=== PATIENT | male | born 1970 | race Caucasian/White ===

== ENCOUNTER → 2018-12-30 | Outpatient (CLI) | payer BC, OTHER ==
[~2018-12-30] VITALS: Ht 185.4 cm; Wt 85.7 kg
[~2018-12-30] MED LIST: CRESTOR10 MG PO; TOPROL XL25 MG PO; XARELTO20 MG PO
[2018-12-30 07:41] VITALS: BP 120/80
--- NOTE | 2018-12-30 10:52 | TEE ---
[facility] [place] [address] TRANSESOPHAGEAL ECHOCARDIOGRAM Name: KELVIN FOLEY Room #: REG SUDHIR MckeonKathyRuthKathy#: [id number] ������������� Admission: 12/30/18 ������������� Attend Phys: Charlie Aly, Discharge: ��� ������������� ��� Date of : 68 Date of Service: 12/30/18 1052 �� Report #: [id number] �������� ��������������������������������������������[id number] THIS REPORT FOR: //name// APPROVED REPORT Study performed: 12/30/2018 09:06:47 EXAM: Comprehensive 2D, Doppler, and color-flow Echocardiogram Patient Location: Out-Patient Status: routine BSA: 2.10 HR: 84 bpm Rhythm: Atrial Fibrillation Other Information Study Quality: Good Indications Atrial Fibrillation Procedure After obtaining informed consent, patient underwent transesophageal echo in the [employer]. Type of Sedation : Conscious Sedation Sedation was administered by Suzanna Castellon RN. Sedation was achieved intravenously with: Versed (4) Fentanyl (100) Transesophageal probe was inserted and advanced into esophagus without difficulty by Charlie Aly MD. The COLETTE was performed without complications. Synchronized Cardioversion attempted: Unsuccessful Synchronized Cardioversion acheived with Joules after 4 attempt(s). Rhythm following Synchronized Cardioversion: Atrial fibrillation. Throughout the procedure, the blood pressure, pulse oximetry, cardiac rhythm, and rate were monitored. The patient tolerated the procedure without adverse effects. Recovery from conscious sedation was uneventful and vital signs were stable. Left Ventricle The left ventricle is normal size. There is normal LV segmental wall motion. There is normal left ventricular wall thickness. Left ventricular systolic function is normal. LVEF is 50%. [facility] [address] [place] [address] TRANSESOPHAGEAL ECHOCARDIOGRAM Name: KELVIN FOLEY Room #: REG SUDHIR Teja.#: [id number] ������������� Admission: 12/30/18 ������������� Attend Phys: Charlie Aly, Discharge: ��� ������������� ��� Date of : 68 Date of Service: 12/30/18 1052 �� Report #: [id number] �������� ��������������������������������������������[id number] Right Ventricle The right ventricle is normal size. The right ventricular systolic function is normal. Atria The left atrium size is normal. No thrombus is visualized in the left atrium or appendage. No shunting noted with contrast bubble injection. The right atrium size is normal. Aortic Valve The aortic valve is normal in structure. No aortic regurgitation is present. There is no aortic valvular stenosis. Mitral Valve The mitral valve is normal in structure. Mild mitral regurgitation. Tricuspid Valve The tricuspid valve is normal in structure. There is no tricuspid valve regurgitation noted. Pulmonic Valve The pulmonary valve is normal in structure. There is no pulmonic valvular regurgitation. Great Vessels The aortic root is normal in size. The ascending aorta is normal in size. IVC is normal in size and collapses >50% with inspiration. Pericardium There is no pericardial effusion. <Conclusion> Left ventricular systolic function is normal. LVEF is 50%. Atria are normal sized No thrombus is visualized in the left atrium or appendage. No shunting noted with contrast bubble injection. The aortic valve is normal in structure. No aortic regurgitation or stenosis The mitral valve is normal in structure. Mild mitral regurgitation Normal aorta. There is no pericardial effusion. [facility] [address] [place] [address] TRANSESOPHAGEAL ECHOCARDIOGRAM Name: KELVIN FOLEY Room #: REG CL MikeKathyRuthKathy#: [id number] ������������� Admission: 12/30/18 ������������� Attend Phys: Charlie Aly, Discharge: ��� ������������� ��� Date of : 68 Date of Service: 12/30/181051 �� Report #: [id number] �������� ��������������������������������������������[id number] Unsuccessful cardioversion of atrial fibrillation to sinus rhythm despite 4 synchronous joules shocks ��������������������������������������������� <ELECTRONICALLY SIGNED> ���������������������������������������� By: Charlie Aly MD, [facility] ��������������������������������������������� 12/30/181051 51 51 Charlie Aly MD, FACC /INF
--- NOTE | 2018-12-30 12:52 | NUR ---
POST COLETTE/CV NOTE. PT TOLERATED BOTH PROCEDURES WITH NO C/O. PLEASANT AFFECT. GIRL FRIEND AT BEDSIDE. EMOTIONAL SUPPORT GIVEN PT REMAINS IN AFIB DESPITE 4 CARDIOVERSION ATTEMPTS. SKIN TO CHEST RED NO BLISTERS. INSTRUCTED TO APPLY CREAM NEEDED AT HOME. BP STABLE. RECOVERED POST CONSCIOUS SEDATION WITH NO C/O. ALERT AND ORIENTED X4. UP WITH STEADY GAIT. FOLLOW UP APPT MADE WITH DR CASTRO. CARD GIVEN TO PT. HOME WITH GIRLFRIEND.
== END | disposition home or self-care (01) ==
LOC: CATH 06:59
DX: I34.0 Nonrheumatic mitral (valve) insufficiency (principal); I48.91 Unspecified atrial fibrillation; E78.5 Hyperlipidemia, unspecified; Z79.01 Long term (current) use of anticoagulants; Z98.890 Other specified postprocedural states; Z79.899 Other long term (current) drug therapy

== ENCOUNTER → 2019-01-16 | Outpatient (CLI) | payer BC, OTHER ==
[2019-01-16 07:52] LABS: HEMATOCRIT 45.2 % (42.0-52.0); HEMOGLOBIN 15.6 gm/dL (14.0-18.0); MCHC 34.5 g/dL (28.0-37.0); MCV 92.5 fL (80.0-100.0); RBC 4.88 mil/uL (4.50-6.00); WBC 3.9 thou/uL (4.0-11.0)
[2019-01-16 08:21] LABS: ALBUMIN 3.8 g/dL (3.4-5.0); CALCIUM 9.4 mg/dL (8.5-10.1); POTASSIUM 4.1 mmol/L (3.5-5.1); TOTAL BILIRUBIN 0.6 mg/dL (<0.1-1.0); TOTAL PROTEIN 6.7 g/dL (6.4-8.2)
== END ==
LOC: CAT 07:24
PROVIDERS: Internal Medicine Cardiovascular Disease
DX: I48.91 Unspecified atrial fibrillation (principal); N28.1 Cyst of kidney, acquired; K76.89 Other specified diseases of liver; M47.814 Spondylosis without myelopathy or radiculopathy, thoracic region

== ENCOUNTER 2019-01-23 06:48 | Outpatient (CLI) | payer BC, OTHER ==
[~2019-01-23] VITALS: Ht 185.4 cm; Wt 86.2 kg
--- NOTE | ~2019-01-23 | P ---
[facility] [place] [address] PROCEDURE REPORT Name: KELVIN FOLEY Room #: 218-P [facility] Lezama.#: [id number] Admission: 01/23/19 ������������������ Attend Phys: Wilder Macario MD Discharge: ������������������ Date of : 68 Report #: [id number] THIS REPORT FOR: //name// CC: Rocco Macario PREOPERATIVE DIAGNOSIS: Atrial fibrillation. POSTOPERATIVE DIAGNOSIS: Atrial fibrillation and typical atrial flutter. PROCEDURES PERFORMED: 1. AFib ablation, CPT code 38808. 2. 3D mapping, CPT code 51920. 3. Intracardiac echo, CPT code 75958. 4. Second pathway ablation for typical atrial flutter, CPT code 30563. 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 He is here for AFib ablation. ANESTHESIA: The patient was placed under general anesthesia with no anesthesia related complications. DESCRIPTION OF PROCEDURE: The patient underwent informed consent. We discussed the details of the procedure including the risks, which include but not limited to bleeding, vascular damage, cardiac perforation, stroke and [place]. He understood these risks and is willing to proceed. The patient was brought to the EP laboratory in a fasting and sedated state, prepped and draped in a sterile fashion, injected lidocaine to the right groin region and obtained access to the right femoral vein x 3, placing an 8-Singaporean, 9-Singaporean and 7-Singaporean short sheath and in the left femoral vein, I placed a 5-Singaporean short sheath. Next, under fluoroscopy, I placed a decapolar catheter into the coronary sinus. Of note, the decapolar wanted to sit primarily in a ventricular branch. Towards the end of the case, I was able to get it into the CS proper. I then placed an ice catheter into the right atrium and I created a detailed 3D geometry of the right atrium using CartoSound with evidence of two left and two right pulmonary veins. At baseline, the patient was in atrial fibrillation with a ventricular cycle length of 800 milliseconds, QRS duration 90 milliseconds and QT interval 420 milliseconds. Next, the patient was systemically heparinized and a transseptal was performed using an SL1 sheath and [place] needle. This was straightforward. I then placed a Lasso catheter into the left atrium and created a detailed 3D voltage map of the left atrium. Next, I exchanged the SL1 sheath for the cryo sheath and the cryoablation balloon and we started ablating. I started by isolating the left superior pulmonary vein. There was very large left atrial appendage signals. Therefore, I was not entirely sure if we had isolated. I did two 4-minute freezes but compared to the beginning there appeared to be significant change. I then turned my [facility] [address] [place] [address] PROCEDURE REPORT Name: KELVIN FOLEY Room #: 218-P [facility] Traore#: [id number] Admission: 01/23/19 ������������������ Attend Phys: Wilder Macario MD Discharge: ������������������ Date of : 68 Report #: [id number] attention to the left inferior pulmonary vein and I did a 4-minute freeze followed by a 3-minute freeze and the vein did isolate during the first freeze within 35 seconds. The attempts were close to -50. Of note, after I had isolated the left superior pulmonary vein. The patient had now organized from atrial fibrillation into what appeared to be typical atrial flutter. I then turned my attention to the right superior pulmonary vein and I performed a 200-second freeze followed by a 130-second freeze. The attempts were -50 and it appeared to have isolated the vein. I then isolated the right inferior pulmonary vein, performing 2 freezes, which were each of 200 seconds duration. The attempts were -50 in both of these freezes. While isolating the right-sided veins, phrenic nerve, pacing was performed and there was never any phrenic nerve compromise. Next, I removed my cryo catheter and placed a Lasso back in the left atrium and we created a detailed 3D voltage map of the left atrium and there was clear isolation of the 4 pulmonary veins and it appeared we had created a wide circumferential ablation. Based on the activation on the left atrium, this did not appear to be a left-sided flutter and based on the flutter morphology on EKG, this appeared to likely be cavotricuspid isthmus dependent flutter. Therefore, I pulled my sheaths to the right atrium, I removed my ice catheter and I upsized the sheath to a ramp sheath and placed a [employer] Bell SmartTouch ThermoCool ablation catheter into the right atrium. Entrainment was performed along the cavotricuspid isthmus with a PPI minus tachycardia cycle length of 6 milliseconds consistent with cavotricuspid isthmus dependent flutter. CAVOTRICUSPID ISTHMUS DEPENDENT FLUTTER ABLATION: Next, the patient underwent atrial flutter ablation. Ablation was performed at 35 sprague. As I was ablating after about a minute, the patient suddenly had a ventricular slowing and then a ventricular asystole that lasted about 5-10 seconds. I came off and his conduction returned to normal. I was nowhere near the His region; therefore, this appeared to likely be a vagal response. He did have an associated drop in the blood pressure that corresponded to the bradycardia as well. This blood pressure quickly improved on its own. I decided to put a 5-Singaporean quadripolar catheter via a sheath in the left groin, which was a 5-Singaporean short sheath and I used this for RV pacing if necessary. Therefore, I went back and started ablating where I had come off and again after about 20-30 seconds, he started having gradual slowing of ventricular conduction and therefore, I came on pacing. Again, this was transient in nature and likely represented a vagal response. Therefore, I came back on ablation and continued my drag lesion until I came to the posterior aspect of the isthmus and there was termination of the atrial flutter. Pacing both medial and lateral to the line of ablation showed that the transisthmus conduction time was only 80 milliseconds. I therefore performed additional ablation along the posterior aspect as there appeared to be a ridge here. I positioned my black ablation catheter more vertically to get into this ridge area and I found some sharp electrograms at this site. After performing 2 or 3 ablation lesions using this technique, we again tested and now the transisthmus conduction time was 145 milliseconds and the activation [facility] [address] [place] [address] PROCEDURE REPORT Name: KELVIN FOLEY Room #: 218-P [facility] Mckeon.R.#: [id number] Admission: 01/23/19 ������������������ Attend Phys: Wilder Macario MD Discharge: ������������������ Date of : 68 Report #: [id number] sequence was consistent with bidirectional block. Post-ablation EP study was performed. AV block was noted at 330 milliseconds. AV nasima ERP was noted at 320 milliseconds at [address] cycle length. Atrial burst pacing down to 250-290 milliseconds showed no induction of atrial flutter or atrial fibrillation. As such, the procedure was concluded. Post-ablation, the patient was in sinus rhythm with a sinus cycle length of 750 milliseconds, LA interval 180 milliseconds, QRS duration 95 milliseconds, QT interval 390 milliseconds. As such, the patient received systemic protamine and once ACT was within acceptable range, all catheters and sheaths were pulled and hemostasis was obtained. The patient awoke neurologically and hemodynamically intact. No complications and no significant bleeding. CONCLUSIONS: 1. Successful AFib ablation with wide circumferential ablation of the pulmonary veins. 2. Successful ablation of cavotricuspid isthmus flutter with evidence of bidirectional block. 3. Normal EP study with normal SA nasima function, normal AV nasima function and normal His-Purkinje function. 4. No other inducible arrhythmias on EP study. ��������������������������������������������� ���������������������������������������� By: ��������������������������������������������� [id number] Wilder Macario MD /nt
[2019-01-23 10:55] VITALS: BP 132/107
[2019-01-23 10:58] LABS: ABSOLUTE NEUTROPHILS 4.9 thou/uL (1.4-8.2); BASOPHILS 0.8 % (0.0-2.0); EOSINOPHILS 0.6 % (0.0-3.0); HEMATOCRIT 48.4 % (42.0-52.0); HEMOGLOBIN 16.4 gm/dL (14.0-18.0); LYMPHOCYTES 23.8 % (24.0-44.0); MCH 31.4 pg (26.0-34.0); MCV 92.3 fL (80.0-100.0); MONOCYTES 6.8 % (1.0-8.0); PLATELET COUNT 217 thou/uL (150-400); RBC 5.24 mil/uL (4.50-6.00); RDW 12.6 % (10.5-14.5); WBC 7.2 thou/uL (4.0-11.0)
[2019-01-23 11:09] LABS: PROTIME 10.5 Seconds (9.3-11.4)
[2019-01-23] MEDS ORDERED: TAMBOCOR 100 M100 M1 PO (16:43)
[2019-01-23 17:05] VITALS: BP 127/78
--- NOTE | 2019-01-23 17:26 | NUR ---
PT ARRIVED TO THE UNIT AT APPROX 1700 BY PACU STAFF ACCOMPANIED BY SIG. OTHER WITH ALL BELONGINGS. PT ALERT AND ORIENTED, VSS, NO C/O PAIN. DENIES CHEST PAIN, SOB. O2 SATS WNL ON ROOM AIR, NO S/SX OF CARD OR RESP DISTRESS NOTED. RIGHT AND LEFT GROIN SITES CDI, NO HEMATOMAS. RIGHT RADIAL WITH DRESSING, CDI, NO HEMATOMA. PT EDUCATED ON INSTRCUTED IMMOBILIZATION. COMMUNICATES UNDERSTANDING. TELE PUT ON, ADMIT STRIP PRINTED AND DOCUMENTED, PT CURRENTLY NSR ON MONITOR. DENIES CONCERNS AT THIS TIME. WILL CONT TO MONITOR AND FOLLOW POC.
[2019-01-23 19:23] VITALS: BP 120/80
--- NOTE | 2019-01-23 19:29 | NUR ---
PT CONTINUES TO BE ALERT AND ORIENTED, VSS, GROIN SITES REMAIN CDI, NO HEMATOMA. POST ABLATION VITAL SIGNS CHARTED AND WILL BE PLACED IN CHART. NO C/O PAIN. VASQUEZ REMAINS IN PLACE, PT MAINTAINING INSTUCTED IMMOBILIZATION. CONTINUING TO MONITOR.
--- NOTE | 2019-01-24 02:59 | NUR ---
ASSESSMENTS CHARTED. PATIENT OFF BEDREST AT 22:30 BOTH RIGHT AND LEFT GROIN SITES ARE C/D/I AND SOFT. VASQUEZ DISCONTINUED ONCE BEDREST WAS OVER. PATIENT ABLE TO URINATE. UP AT SULEIMAN. DENIES PAIN. PLAN OF CARE TO DISCHARGE HOME TODAY.
[2019-01-24 04:15] VITALS: BP 107/60
[2019-01-24 07:45] VITALS: BP 109/69
[2019-01-24 10:31] VITALS: BP 109/69
--- NOTE | 2019-01-24 11:14 | NUR ---
ASSUMED CARE OF PT AT SHIFT CHANGE. ASSESSMENTS CHARTED. MEDS GIVEN PER NOV. PT ALERT AND ORIENTED, VSS, NSR ON MONITOR. RIGHT AND LEFT GROIN SITES CDI, NO HEMATOMA. DC ORDERS ACKNOWLEDGED AND IMLEMENTED. DC PAPERWORK DISCUSSED WITH PT, COMMUNICATES UNDERSTANDING. PT LEFT UNIT AT APPROX 1030 WITH ALL BELONGINGS ACCOMPANIED BY SIG. OTHER. IV REMOVED, TELE REMOVED.
== END 2019-01-24 11:00 | disposition home or self-care (01) ==
LOC: CATH 06:48 → 2N 17:06 → CATH 01-24 11:00
PROVIDERS: Internal Medicine Cardiovascular Disease
DX: I48.91 Unspecified atrial fibrillation (principal); I48.3 Typical atrial flutter; E78.5 Hyperlipidemia, unspecified; Z98.890 Other specified postprocedural states; Z79.01 Long term (current) use of anticoagulants; Z79.899 Other long term (current) drug therapy
CPT/HCPCS: 10081; 62110; 62900; 65020; 65040; 70005

== ENCOUNTER → 2019-05-22 | Outpatient (CLI) | payer BC, OTHER ==
[~2019-05-22] MED LIST changes: +TAMBOCOR 100 M100 M1 PO
--- NOTE | 2019-05-22 10:09 | EXE ---
[facility] [employer] [place] [address] STRESS ECHOCARDIOGRAM Name: KELVIN FOLEY Room #: REG SUDHIR Traore#: [id number] Admission: 05/22/19 Attend Phys: Wilder Macario Discharge: Date of : 68 Date of Service: 05/22/19 1009 Report #: [id number] THIS REPORT FOR: //name// APPROVED REPORT Study performed: 05/22/2019 08:56:57 Exam: Stress Echocardiogram Indication: Chest pain Patient Location: Out-Patient Stress Nurse: Aziza Duffy RN Status: routine Ht: 6 ft 1 in HR: 96 bpm BP: 130/80 mmHg Medical History Medical History: Atrial Fibrillation s/p ablation, Hyperlipidemia Medications: Metoprolol Allergies: No known drug allergies Cardiac Risk Factors: Hyperlipidemia Procedure The patient underwent an Exercise Stress Test using the Ramy Protocol. Blood pressure, heart rate, and EKG were monitored. An Echocardiogram was performed by radio tower technician in four stages in quad fashion. At peak stress, four selected images were obtained and placed side by side with resting images for comparison. Stress Test Details Stress Test: Exercise stress testing was performed using a Ramy protocol. HR Resting HR: 96 bpm Max Heart Rate (APMHR): 170 bpm Max HR Achieved: 171 bpm Target HR (85% APMHR): 144 bpm % of APMHR: 100 Recovery HR: 106 bpm HR response to stress: Normal HR response to stress BP Resting BP: 130/80 mmHg Max BP: 140/80 mmHg Recovery BP: 130/80 mmHg BP response to stress: Normal blood pressure response to [facility] [address] [place] [address] STRESS ECHOCARDIOGRAM Name: ALAINAKELVIN Hayde Room #: REG SUDHIR Traore#: [id number] Admission: 05/22/19 Attend Phys: [facility] Discharge: Date of : 68 Date of Service: 05/22/19 1009 Report #: [id number] stress. ECG Resting ECG: Sinus Rhythm Stress ECG: Sinus Tachycardia ST Change: Normal Arrhythmia: None Recovery ECG: Sinus Rhythm Clinical Reason for Termination: Completed protocol Exercise duration: 13 min 48 sec Highest Stage Achieved: Stage 5: 5.0 mph at 18% grade. Exercise capacity: 17.50 METs Stress ECG Conclusion 1 subjectively negative for ischemia 2. electrocardiographically negative for ischemia 3. excellent functional capacity Pre-Stress Echo The resting Echocardiogram showed normal left ventricular contractility with an estimated Ejection Fraction of about 55%. Post-Stress Echo The stress Echocardiogram showed normal left ventricular contractility with an estimated Ejection Fraction of about 65-70%. Compared to rest, there were no stress-induced wall motion abnormalities. Conclusion Clinical Response: Non-ischemic Exercise Capacity: Superior Stress ECG Response: Non-ischemic Stress Echo Images: Non-ischemic 1. low risk study Other Information Study Quality: Adequate <Conclusion> 1. low risk study <ELECTRONICALLY SIGNED> By: Robinson Cruz MD 05/22/19 1009 08 08 Robinson Cruz MD /INF
== END ==
LOC: CV 05-13 14:37
DX: I48.91 Unspecified atrial fibrillation (principal); E78.5 Hyperlipidemia, unspecified